=== PATIENT | female | born 1985 | race Caucasian/White ===

== ENCOUNTER 2018-09-26 06:00 | Day surgery (SDC) | payer BC ==
--- NOTE | 2018-09-20 22:04 | HP ---
CC: Dr. Muller * PREOPERATIVE HISTORY AND PHYSICAL: DATE OF ADMISSION/SURGERY: This patient is scheduled for same-day surgery admission by Dr. Chairez on 09/26/18. DATE OF PREOPERATIVE HISTORY AND PHYSICAL EXAMINATION: 09/20/18. ATTENDING SURGEON: Dr. Wil Chairez * (dictated by Essence Chen NP). CHIEF COMPLAINT: Biliary colic. HISTORY OF PRESENT ILLNESS: The patient is a 33-year-old female referred to Dr. Chairez by Dr. Muller for symptoms related to biliary colic and consideration for gallbladder surgery. In September 2017, she went to an emergency room on [address] with chest and abdominal pain; she had normal labs and a normal EKG, but an abdominal ultrasound revealed gallstones and she was told to seek surgical referral. Since then, she has had intermittent and mild epigastric and right upper quadrant abdominal pain, but she has been trying to follow a low-fat diet to keep it at bay. Gallbladder ultrasound did reveal gallstones; she had a HIDA scan, which showed a patent cystic and common bile duct. Dr. Chairez examined the patient and discussed the findings with her and has recommended laparoscopic cholecystectomy and described the nature of the surgical procedure, the relevant risks and benefits and today, I reviewed the expected postoperative care and recovery. Of note, she denies any change in the color of urine or stool; she had liver chemistries within normal limits and has never had an elevated white blood count. PAST MEDICAL HISTORY: Significant for morbid obesity; hypothyroidism; episodes of bulimia, none recent; chronic pharyngitis; anxiety and depression; migraine headaches. PAST SURGICAL HISTORY: None. OB HISTORY: 5, para 3, miscarriage 2. Last menstrual period approximately 2 weeks ago. MEDICATIONS: 1. Synthroid 88 mcg 1 tablet daily. 2. Magnesium oxide 250 mg daily. 3. Vitamin D3 2000 International Units 2 tablets daily. 4. Multivitamin daily. ALLERGIES: No known drug allergies. FAMILY HISTORY: Her parents are both adopted. She does not know significant family history. SOCIAL HISTORY: She is and has 3 young children; she has never been a smoker and denies the use of alcohol or other substances. REVIEW OF SYSTEMS: Constitutional: No fevers, chills, excessive fatigue. Endocrine: No diabetes; she is on thyroid replacement for hypothyroidism. Hematologic: No easy bruising or bleeding. No blood transfusions. She reports that her menstrual periods can be very heavy. Respiratory: No dyspnea on exertion. No chronic cough; she reports that she had a negative strep test at her primary care office 2 weeks ago when she had a sore throat. No current sore throat. Cardiovascular: No anginal chest pain or palpitations. Gastrointestinal: No nausea, vomiting, diarrhea, GI bleeding, or constipation. No change in the color of her stool. Genitourinary: No dysuria. No change in the color of her urine. Musculoskeletal: No complaints of back or joint pain. Neurologic: History of migraine headaches, none today. No blurred vision. General: She has never received local anesthesia or general anesthesia that she is aware of; she states that she did have what sounds like an epidural with the of her third child; she denies any history of bleeding tendencies and has never received a blood transfusion. She denies any history of deep vein thrombosis or pulmonary embolism. PHYSICAL EXAMINATION GENERAL SURVEY: The patient is a 33-year-old morbidly obese female, well developed, in no acute distress. VITAL SIGNS: Height 63 inches, weight 260 pounds, body mass index 46.1. Blood pressure 124/90, pulse 84 and regular, respiratory rate 18, temperature 97.4 tympanic. HEENT: Benign. NECK: Supple. No cervical lymphadenopathy. LUNGS: Breath sounds bilaterally clear and equal. HEART: Regular rate and rhythm. No murmurs or rubs appreciated. ABDOMEN: Obese. Active bowel sounds. Soft and nondistended, nontender throughout. No surgical scars. No obvious masses or organomegaly or evidence of ventral hernia. BACK: No CVA tenderness. PELVIC: Exam deferred. RECTAL: Exam deferred. EXTREMITIES: Warm without edema or skin ulceration. NEUROLOGIC: Alert and oriented x3. Steady gait. SKIN: Warm, dry, intact. IMPRESSION: Biliary colic, cholelithiasis. PLAN: Same-day surgery admission to Dr. Chairez' schedule on 09/26/18 , for laparoscopic cholecystectomy. MELLY CHEN NP [id number]/[facility] #: [id number] [facility]
[~2018-09-26 06:00] MED LIST: Buffered Lidocaine 0.9% SYRIN* 5 ML/SYR SYRINGE INTRADERM ONE; Dexamethasone IV* 4 MG/ML 1 ML (4 MG) IV SLOW PU ONE; Famotidine IV* 10 MG/ML 2 ML (20 mg) IV ONE
[2018-09-26] MEDS ORDERED: Naloxone* 0.4 MG/ML 1 ML VIAL IV PRN (06:55)
[2018-09-26] MEDS ORDERED: Iohexol 180 (CONTRAST) 10 ML SDV IV ONE (06:55)
[2018-09-26] MEDS ORDERED: DiMENhydriNATE IV* 50 MG/ML VIAL IV PUSH PRN (06:55)
[2018-09-26] MEDS ORDERED: Bupivacaine 0.25% EPI 200,000* 30 ML SDV ONE (06:55)
[2018-09-26] MEDS ORDERED: Scopolamine 1.5 mg* PATCH TRANSDERM SCH (07:00)
[2018-09-26] MEDS ORDERED: Scopolamine 1.5 mg* PATCH ONE (07:07)
[2018-09-26] MEDS ORDERED: ceFAZolin 2 GM PREMIX in ORs 2 GM/50 ML BAG IVPB ONE (07:07)
[2018-09-26] MEDS ORDERED: Dexamethasone IV* 4 MG/ML 1 ML (4 MG) ONE (07:07)
[2018-09-26] MEDS ORDERED: Famotidine IV* 10 MG/ML 2 ML (20 mg) ONE (07:07)
[2018-09-26] MEDS ORDERED: Rocuronium* 10 MG/ML VIAL ONE (07:09)
[2018-09-26] MEDS ORDERED: fentaNYL* 50 MCG/ML 2 ML VIAL (100 MCG VIAL) ONE ×5 (07:09→09:38)
[2018-09-26] MEDS ORDERED: Midazolam* 1 MG/ML 2 ML VIAL (2 MG) ONE (07:09)
[2018-09-26] MEDS ORDERED: Propofol* 10 MG/ML 20 ML BTL ONE (07:14)
[2018-09-26] MEDS ORDERED: Lidocaine 2% PF * 5 ML VIAL ONE (07:14)
[2018-09-26] MEDS ORDERED: Ketorolac INJ* 30 MG/ML 1 ML VIAL ONE (07:14)
[2018-09-26] MEDS ORDERED: Ondansetron INJ* 2 MG/ML VIAL ONE (07:14)
--- NOTE | 2018-09-26 08:49 | OP ---
Operative Report - Blank - Operative Report Date of Operation: 09/26/18 Note: Brief Operative Note Preop Dx: symptomatic cholelithiasis Postop Dx: same Procedure: laparoscopic cholecystectomy Anesthesia: GET Surgeon: Mihaela Simulation Tech: CODI Chance PA-S Fluids: 800 ml RL EBL: 20 ml Specimen: gallbladder Drains: none Findings: dictated
[2018-09-26] MEDS: fentaNYL* 50 MCG/ML 2 ML VIAL (100 MCG VIAL) IV PRN ×5 (08:59→09:55)
[2018-09-26] MEDS ORDERED: HYDROmorphone INJ1* 1 MG/ML SYRINGE ONE (09:07)
[2018-09-26] MEDS: HYDROmorphone INJ1* 1 MG/ML SYRINGE IV PRN ×2 (09:08→09:16)
[2018-09-26 10:39] VITALS: BP 139/89
--- NOTE | 2018-09-27 10:21 | OP ---
CC: Oumar Muller DO * DATE OF OPERATION: 09/26/18 - [facility] DATE OF : 83 SURGEON: Wil Chairez MD WIRE CHIEF: HUONG Hylton ANESTHESIOLOGIST: Steve Cantrell MD ANESTHESIA: General endotracheal. PRE-OP DIAGNOSIS: Symptomatic cholelithiasis. POST-OP DIAGNOSIS: Symptomatic cholelithiasis. OPERATIVE PROCEDURE: Laparoscopic cholecystectomy. ESTIMATED BLOOD LOSS: Minimal. IV FLUIDS: Crystalloids. SPECIMEN: Gallbladder. DRAINS: None. COMPLICATIONS: None. COUNTS: The instrument, needle, and sponge counts were correct. DESCRIPTION OF PROCEDURE: The patient was brought to the operating room and placed on the table supine. Sequential compression devices were placed on both lower extremities. She was positioned and padded appropriately. She received appropriate intravenous antibiotics. She was prepped and draped in the usual sterile fashion and time-out was performed. Local anesthetic was infiltrated into the skin and soft tissue prior to making each incision. Entry to the abdomen was through a transumbilical incision using an open technique, and after accessing the peritoneal cavity, a 5-mm trocar was placed and carbon dioxide was insufflated to a pressure of 15 mmHg. Under direct visualization, a 12-mm trocar was placed in the subxiphoid position and two 5-mm trocars were placed in the right upper quadrant. Gallbladder was identified. There was no acute inflammation. There were omental adhesions to the gallbladder fundus. The fundus was grasped and retracted cephalad. The adhesions to the omentum were taken down using a combination of sharp and blunt dissection. The infundibulum was identified and then the peritoneum investing the gallbladder was incised on both medial and lateral aspects. A large cystic node was identified, dissected free and beneath this, the cystic artery was identified. Subsequently, the cystic duct was able to be dissected out and critical view was obtained. The cystic artery and cystic duct were each divided after being doubly clipped. The gallbladder was freed from attachments to the liver using the electrocautery. There was a posterior branch of the cystic artery that was identified and was clipped as well. The gallbladder was freed, placed to endoscopic retrieval bag and retrieved through the subxiphoid port site. Subsequently, inspection revealed the clips to be intact. The hemostasis was excellent. The ports were removed under direct visualization and carbon dioxide was released. The wounds were closed with 4-0 Monocryl for the skin. Steri-Strips were applied. The patient tolerated the procedure well, was extubated, and transferred to the recovery room in stable condition. [id number]/[facility] #: [id number] CYN
== END 2018-09-26 10:43 | disposition home or self-care (01) ==
LOC: OR 06:00
PROVIDERS: ATTEND Surgery
DX: K80.10 Calculus of gallbladder with chronic cholecystitis without obstruction (principal); Z68.42 Body mass index [BMI] 45.0-49.9, adult; F41.8 Other specified anxiety disorders; E03.9 Hypothyroidism, unspecified
CPT/HCPCS: 81025; 88304; A9270-GY; J0690; J1100; J1170; J1885; J2250; J2405; J2704; J3010

== ENCOUNTER 2018-09-28 05:30 | Emergency (ER) | payer BC ==
--- OUTSIDE RECORDS SUMMARY | 2018-09-28 05:39 | XMS REPORT | Continuity of Care Document ---
:1985 External Reference #:[id number] Author Name Lori Herrera Care Team Providers Name Role Phone Oumar Muller DO Primary Care Physician Unavailable Payers Type Date Identification Numbers Payment Provider Subscriber Effective: Policy Number: [id number] [facility] Segundo Durand 2017 PayID: [id number] [address] [address] [place] [address] Effective: 2017 Policy Number: [id number] [facility] Gay Durand Expires: 2019 Group Number: [id number]% [id number] [facility] PayID: [id number] [address] Advance Directives Description No Information Available Problems Description No Information Family History Date Family Member(s) Problem(s) Comments General Diabetes Mother Diabetes Social History Type Date Description Comments Sex Unknown Marital Status Lives With Lives With Children Occupation Homemaker Occupation Student ETOH Use Denies alcohol use Tobacco Use Start: Unknown Patient has never smoked Recreational Drug Use Denies Drug Use Smoking Status Reviewed: 09/20/18 Patient has never smoked Exercise Type/Frequency Exercises regularly Allergies, Adverse Reactions, Alerts Description No Known Drug Allergies Medications Medication Date Status Form Strength Qnty SIG Indications Ordering Provider Synthroid 0 Active Tablets 88mcg one by [place], 000 mouth Oumar daily DO Driss (increased to 112mcg has not started yet) Magnesium Oxide 0 Active Tablets 250mg 1 by mouth Unknown 000 every day Vitamin D3 Super 0 Active Tablets 2000Unit 2 by mouth Unknown Strength 000 every day Multivitamin 0 Active Tablets 1 tab Unknown Adults 000 daily Immunizations Description No Information Available Vital Signs Date Vital Result Comment 09/20/2018 12:56pm Height 63 inches 5'3" Weight 260.00 lb Heart Rate 84 /min BP Systolic Sitting 124 mmHg BP Diastolic Sitting 90 mmHg Respiratory Rate 18 /min Body Temperature 97.4 F BMI (Body Mass Index) 46.1 kg/m2 07/13/2018 10:11am Height 63 inches 5'3" Weight 260.00 lb Heart Rate 72 /min BP Systolic 124 mmHg BP Diastolic 82 mmHg Respiratory Rate 16 /min Body Temperature 97.8 F BMI (Body Mass Index) 46.1 kg/m2 11/10/2017 9:52am Heart Rate 84 /min Respiratory Rate 16 /min Body Temperature 98.5 F 10/28/2017 10:31am Height 63 inches 5'3" Weight 240.00 lb Heart Rate 68 /min BP Systolic Sitting 108 mmHg BP Diastolic Sitting 64 mmHg Respiratory Rate 18 /min Pain Level 4 BMI (Body Mass Index) 42.5 kg/m2 Results Test Date Facility Test Result H/L Range Note CBC Auto Diff 09/15/2018 [facility] White Blood 8.1 10^3/uL N 3.5-10.[address] [place] [address] [phone] Red Blood Count 5.29 10^6/uL N 4.00-5.40 Hemoglobin 14.0 g/dL N 12.0-16.0 Hematocrit 43 % N 35-47 Mean Corpuscular Volume 81 fL N 80-97 Mean Corpuscular Hemoglobin 27 pg N 27-31 Mean Corpuscular HGB Conc 33 g/dL N 31-36 Red Cell Distribution Width 15 % N 10.5-15 Platelet Count 212 10^3/uL N 150-450 Mean Platelet Volume 9.5 fL N 7.4-10.4 Abs Neutrophils 4.0 10^3/uL N 1.5-7.7 Abs Lymphocytes 3.3 10^3/uL N 1.0-4.8 Abs Monocytes 0.5 10^3/uL N 0-0.8 Abs Eosinophils 0.2 10^3/uL N 0-0.6 Abs Basophils 0.1 10^3/uL N 0-0.2 Abs Nucleated RBC 0 10^3/uL Granulocyte % 49.7 % N 38-83 Lymphocyte % 41.0 % N 25-47 Monocyte % 6.3 % N 0-7 Eosinophil % 2.1 % N 0-6 Basophil % 0.9 % N 0-2 Nucleated Red Blood Cells % 0.1 Laboratory test 09/15/2018 [facility] Hemoglobin A1c 5.3 % N 4.0-5.[address] (Glyco HGB) [place] [address] [phone] Comp Metabolic 09/15/2018 [facility] Sodium 138 N 135-[address] mmol/[place] [address] [phone] Potassium 4.5 mmol/L N 3.5-5.0 Chloride 108 mmol/L N 101-111 Co2 Carbon Dioxide 27 mmol/L N 22-32 Anion Gap 3 mmol/L N 2-11 Glucose 111 mg/dL High 70-100 Blood Urea Nitrogen 11 mg/dL N 6-24 Creatinine 0.68 mg/dL N 0.51-0.95 BUN/Creatinine Ratio 16.2 N 8-20 Calcium 9.3 mg/dL N 8.6-10.3 Total Protein 6.1 g/dL Low 6.4-8.9 Albumin 3.9 g/dL N 3.2-5.2 Globulin 2.2 g/dL N 2-4 Albumin/Globulin Ratio 1.8 N 1-3 Total Bilirubin 0.40 mg/dL N 0.2-1.0 Alkaline Phosphatase 69 U/L N 34-104 Alt 10 U/L N 7-52 Ast 10 U/L Low 13-39 Egfr Non- 99.0 >60 Egfr 119.8 >60 2 Laboratory test 09/15/2018 [facility] TSH (Thyroid 5.85 High 0.34-5.60 [address] Stim Horm) mcIU/[place] [address] [phone] Vitamin B12 529 pg/mL N 180-914 4 Vitamin D Total 25(Oh) 18.8 ng/mL Low 20-50 5 CBC Auto Diff 07/13/2018 [facility] White Blood 7.8 10^3/uL N 3.5-10.[address] [place] [address] [phone] Red Blood Count 5.29 10^6/uL N 4.00-5.40 Hemoglobin 14.0 g/dL N 12.0-16.0 Hematocrit 43 % N 35-47 Mean Corpuscular Volume 81 fL N 80-97 Mean Corpuscular Hemoglobin 26 pg Low 27-31 Mean Corpuscular HGB Conc 33 g/dL N 31-36 Red Cell Distribution Width 15 % N 10.5-15 Platelet Count 223 10^3/uL N 150-450 Mean Platelet Volume 10.0 um3 N 7.4-10.4 Abs Neutrophils 3.7 10^3/uL N 1.5-7.7 Abs Lymphocytes 3.5 10^3/uL N 1.0-4.8 Abs Monocytes 0.5 10^3/uL N 0-0.8 Abs Eosinophils 0.1 10^3/uL N 0-0.6 Abs Basophils 0 10^3/uL N 0-0.2 Abs Nucleated RBC 0 10^3/uL Granulocyte % 46.9 % N 38-83 Lymphocyte % 44.2 % N 25-47 Monocyte % 6.8 % N 0-7 Eosinophil % 1.8 % N 0-6 Basophil % 0.3 % N 0-2 Nucleated Red Blood Cells % 0.2 Comp Metabolic Panel 07/13/2018 [facility] Sodium 140 mmol/L N 135-145 [address] [place] [address] [phone] Potassium 4.2 mmol/L N 3.5-5.0 Chloride 106 mmol/L N 101-111 Co2 Carbon Dioxide 28 mmol/L N 22-32 Anion Gap 6 mmol/L N 2-11 Glucose 95 mg/dL N 70-100 Blood Urea Nitrogen 10 mg/dL N 6-24 Creatinine 0.72 mg/dL N 0.51-0.95 BUN/Creatinine Ratio 13.9 N 8-20 Calcium 9.3 mg/dL N 8.6-10.3 Total Protein 6.2 g/dL Low 6.4-8.9 Albumin 3.9 g/dL N 3.2-5.2 Globulin 2.3 g/dL N 2-4 Albumin/Globulin Ratio 1.7 N 1-3 Total Bilirubin 0.40 mg/dL N 0.2-1.0 Alkaline Phosphatase 68 U/L N 34-104 Alt 11 U/L N 7-52 Ast 11 U/L Low 13-39 Egfr Non- 93.3 >60 Egfr 112.9 >60 6 Laboratory test 07/13/2018 [facility] C Reactive 2.32 mg/L N < 8.[address] [place] [address] [phone] 1 Therapeutic target for the treatment of diabetes mellitus patients is <7% HBA1C, and in selective patients <6.0%. Please refer to [place] [employer] Association diabetic care guidelines for further information. 2 Because ethnic data is not always readily available, this report includes an eGFR for both -Americans and non- Americans. The National Kidney Disease Education Program (NKDEP) does not endorse the use of the MDRD equation for patients that are not between the ages of 18 and 70, are , have extremes of body size, muscle mass, or nutritional status, or are non- or non-. According to the National Kidney Foundation, irrespective of diagnosis, the stage of the disease is based on the level of kidney function: Stage Description GFR(mL/min/1.73 m(2)) 1 Kidney damage with normal or decreased GFR 90 2 Kidney damage with mild decrease in GFR 60-89 3 Moderate decrease in GFR 30-59 4 Severe decrease in GFR 15-29 5 Kidney failure <15 (or dialysis) 3 Copy Result to: Wil CHAIREZ ([id number]) 4 Normal Range 180 to 914 Indeterminate Range 145 to 180 Deficient Range <145 5 Copy Result to: Wil CHAIREZ ([id number]) 6 Because ethnic data is not always readily available, this report includes an eGFR for both -Americans and non- Americans. The National Kidney Disease Education Program (NKDEP) does not endorse the use of the MDRD equation for patients that are not between the ages of 18 and 70, are , have extremes of body size, muscle mass, or nutritional status, or are non- or non-. According to the National Kidney Foundation, irrespective of diagnosis, the stage of the disease is based on the level of kidney function: Stage Description GFR(mL/min/1.73 m(2)) 1 Kidney damage with normal or decreased GFR 90 2 Kidney damage with mild decrease in GFR 60-89 3 Moderate decrease in GFR 30-59 4 Severe decrease in GFR 15-29 5 Kidney failure <15 (or dialysis) Procedures Description No Information Available Encounters Type Date Location Provider Dx Diagnosis Office Visit 07/13/2018 [facility] Chaire[facility] MD, R10.13 Epigastric pain 10:30a [facility] FACS K80.20 Calculus of gallbladder w/o cholecystitis w/o obstruction Office Visit 11/10/2017 [facility] Wil Chairez K80.20 Calculus of 10:00a [facility] gallbladder w/o Utilization Review Nurse cholecystitis w/o obstruction Office Visit 10/28/2017 [facility] Wil Chairez K80.20 Calculus of 10:15a [facility] gallbladder w/o Utilization Review Nurse [facility] [place] cholecystitis w/o obstruction Plan of Treatment Future Appointment(s):10/04/2018 1:00 pm - Essence June NP at [facility]09/26/2018 8:00 am - HUONG Elmore at [facility]09/26/2018 8:00 am - Wil Chairez MD FACS at [facility]09/20/2018 - Essence June [id number] Calculus of gallbladder without cholecystitis without obstruFollow up:postop 10/10Z01.818 Encounter for other preprocedural examination
[2018-09-28] MEDS ORDERED: Morphine VIAL* 4 MG/ML VIAL (1 ml vial) IV ONE (05:55)
[2018-09-28] MEDS ORDERED: Metoclopramide IV* 5 MG/ML 2 ML VIAL IV SLOW PU ONE (05:55)
[2018-09-28] MEDS ORDERED: NS 0.9% 1000 ML* 1,000 ML IV ONE (05:55)
--- NOTE | 2018-09-28 05:56 | ED ---
HPI Chest Pain - HPI Summary HPI Summary: This patient is a 33 year old F presenting to [facility] with a chief complaint of left-sided CP radiating to L arm that began at approximately 0400 today and resolved an hour later. The patient rates the pain 8/10 in severity. Symptoms aggravated by nothing. Symptoms alleviated by nothing. Patient reports L arm numbness. Patient states she had a cholecystectomy two days ago. - History of Current Complaint Chief Complaint: EDChestPainROMI Time Seen by Provider: 09/28/18 05:40 Hx Obtained From: Patient Hx Last Menstrual Period: OVER 2 YEARS AGO: HAD MISCARRIAGE AND THEN FULL TERM Onset/Duration: Started Hours Ago, Atraumatic, Still Present Time of Onset: 04:00 Timing: Constant Initial Severity: Severe Current Severity: Severe Pain Intensity: 8 Pain Scale Used: 0-10 Numeric Chest Pain Location: Left Lateral Chest Pain Radiates: Yes Chest Pain Radiates To:: Arm Aggravating Factor(s): Nothing Alleviating Factor(s): Nothing Associated Signs and Symptoms: Positive: Numbness - Additional Pertinent History Primary Care Physician: Hoang Echavarria - Allergy/Home Medications Allergies/Adverse Reactions: Allergies Allergy/AdvReac Type Severity Reaction Status Date / Time No Known Allergies Allergy Verified 09/28/18 05:44 Home Medications: Home Medications Cholecalciferol (Vitamin D3) [Vitamin D3] 1,000 unit PO DAILY 09/28/18 [History Confirmed 09/28/18] Tramadol HCl 50 mg PO Q6H PRN 09/28/18 [History Confirmed 09/28/18] PMH/Surg Hx/FS Hx/Imm Hx Previously Healthy: No Endocrine/Hematology History: Reports: Hx Thyroid Disease - HYPOTHYROID; Synthroid Denies: Hx Diabetes Cardiovascular History: Denies: Hx Hypertension, Hx Pacemaker/ICD Respiratory History: Denies: Hx Asthma, Hx Chronic Obstructive Pulmonary Disease (COPD) GI History: Denies: Hx Ulcer History: Denies: Hx Renal Disease Musculoskeletal History: Reports: Other Musculoskeletal History - LOWER BACK INJURY STATES HAS HAD ALL HER LIFE Sensory History: Reports: Hx Contacts or Glasses - GLASSES Denies: Hx Hearing Aid Opthamlomology History: Reports: Hx Contacts or Glasses - GLASSES Neurological History: Reports: Hx Migraine - CHRONIC-2-3 TIMES PER WEEK AT LEAST -TREATS WITH IBUPROFEN Psychiatric History: Reports: Hx Anxiety - HX OF- NO MEDICATION FOR, Hx Depression - HX OF- NO MEDICATION FOR, Other Psychiatric Issues/Disorders - bulimia Denies: Hx Panic Disorder - Surgical History Surgery Procedure, Year, and Place: SPINAL BLOCKS FOR DELIVERIES Hx Anesthesia Reactions: Yes - "EITHER DOESN'T WORK OR MAKES ME FEEL EXTREMELY SICK" Infectious Disease History: No Infectious Disease History: Denies: Hx Clostridium Difficile, Hx Hepatitis, Hx Human Immunodeficiency Virus (HIV), Hx of Known/Suspected MRSA, Hx Shingles, Hx Tuberculosis, Hx Known/ Suspected VRE, Hx Known/Suspected VRSA, History Other Infectious Disease, Traveled Outside the [place] in Last 30 Days - Family History Known Family History: Positive: Cardiac Disease Family History: Father: [place] in 40's - Social History Occupation: Unemployed Lives: With Family Alcohol Use: None Hx Substance Use: No Substance Use Type: Reports: None Hx Tobacco Use: No Smoking Status (MU): Never Smoked Tobacco Have You Smoked in the Last Year: No Review of Systems Positive: Chest Pain Positive: Numbness All Other Systems Reviewed And Are Negative: Yes Physical Exam - Summary Physical Exam Summary: VITAL SIGNS: Reviewed. GENERAL: Patient is a well-developed and morbidly obese female who is lying comfortable in the stretcher. Patient is not in any acute respiratory distress. Patient seems anxious, shaky HEAD AND FACE: No signs of trauma. No ecchymosis, hematomas or skull depressions. No sinus tenderness. EYES: PERRLA, EOMI x 2, No injected conjunctiva, no nystagmus. EARS: Hearing grossly intact. Ear canals and tympanic membranes are within normal limits. MOUTH: Oropharynx within normal limits. NECK: Supple, trachea is midline, no adenopathy, no JVD, no carotid bruit, no c- spine tenderness, neck with full ROM. CHEST: Symmetric, no tenderness at palpation LUNGS: Clear to auscultation bilaterally. No wheezing or crackles. CVS: Regular rate and rhythm, S1 and S2 present, no murmurs or gallops appreciated. ABDOMEN: Soft, non-tender. No signs of distention. No rebound no guarding, and no masses palpated. Bowel sounds are normal. Laparoscopic ports. Steri strips. No inflammatory signs. EXTREMITIES: FROM in all major joints, no edema, no cyanosis or clubbing. NEURO: Alert and oriented x 3. No acute neurological deficits. Speech is normal and follows commands. SKIN: Dry and warm Triage Information Reviewed: Yes Vital Signs On Initial Exam: Initial Vitals Temp Pulse Resp BP Pulse Ox 98.0 F 70 16 111/52 94 09/28/18 05:41 09/28/18 05:41 09/28/18 05:41 09/28/18 05:41 09/28/18 05:41 Vital Signs Reviewed: Yes Diagnostics - Vital Signs Vital Signs Temp Pulse Resp BP Pulse Ox 09/28/18 05:41 98.0 F 70 16 111/52 94 - Laboratory Result Diagrams: 09/28/18 06:07 Lab Statement: Any lab studies that have been ordered have been reviewed, and results considered in the medical decision making process. - Radiology Chest XR Radiology Interpretation Completed By: ED Physician Summary of Radiographic Findings: CXR reveals, per ED physician, no acute process. - EKG 0534 Cardiac Rate: NL EKG Rhythm: Sinus Rhythm - [address] Segment: Non-Specific EKG Comparison: No Significant Change Summary of EKG Findings: An EKG taken at 0534 reveals nml sinus rhythm at 60 BPM with nonspecific T wave changes. No change from EKG done on 01/29/16. Chest Pain Course/Dx - Course Course Of Treatment: This patient is a 33 year old F presenting to [facility] with a chief complaint of left-sided CP radiating to L arm that began at approximately 0400 today and resolved an hour later. Physical Exam Findings: Laparoscopic ports. Steri strips. No inflammatory signs. Morbidly obese. Tenderness over the left chest wall. Patient seems anxious, shaky. An EKG taken at 0534 reveals nml sinus rhythm at 60 BPM with nonspecific T wave changes. No change from EKG done on 01/29/16. CXR reveals, per ED physician, no acute process. Bloodwork obtained. In the ED course the patient was given Metoclopramide, morphine, and fluids. Patient will be signed out to Dr. Mcmillan upon shift change pending CTA chest. The patient is agreeable with this plan. - Diagnoses Provider Diagnoses: Chest pain Discharge - Sign-Out/Discharge Documenting (check all that apply): Sign-Out Patient Signing out patient TO: Shayan Mcmillan - Upon shift change pending CTA chest - Discharge Plan Condition: Stable Referrals: Oumar Muller, [Primary Care Provider] - - Attestation Statements Document Initiated by Scribe: Yes Documenting Scribe: Amanda Paez Provider For Whom Scribe is Documenting (Include Credential): Dr. Mirlande Wooten MD Scribe Attestation: I, Amanda Paez, scribed for Dr. Mirlande Wooten MD on 09/28/18 at 0633. Status of Scribe Document: Ready
[2018-09-28 06:19] LABS: ABS Basophils 0.1 10^3/ul (0-0.2); ABS Eosinophils 0.1 10^3/ul (0-0.6); ABS Lymphocytes 3.5 10^3/ul (1.0-4.8); ABS Monocytes 0.6 10^3/ul (0-0.8); ABS Neutrophils 6.2 10^3/ul (1.5-7.7); ABS Nucleated RBC 0 10^3/ul; Eosinophil % 0.9 %; Hematocrit 41 % (35-47); Hemoglobin 13.3 g/dl (12.0-16.0); Lymphocyte % 33.4 %; Mean Corpuscular HGB Conc 32 g/dl (31-36); Mean Corpuscular Hemoglobin 27 pg (27-31); Mean Corpuscular Volume 82 fL (80-97); Mean Platelet Volume 9.2 fL (7.4-10.4); Nucleated Red Blood Cells % 0; Platelet Count 173 10^3/ul (150-450); Red Blood Count 5.02 10^6/ul (4.00-5.40); Red Cell Distribution Width 15 % (10.5-15); White Blood Count 10.5 10^3/ul (3.5-10.8)
[2018-09-28 06:27] LABS: INR 0.87 (0.77-1.02)
[2018-09-28] MEDS ORDERED: diPHENhydraMINE PO* 50 MG ONE (06:31)
[2018-09-28] MEDS ORDERED: diPHENhydraMINE PO* 50 MG PO ONE (06:34)
[2018-09-28] MEDS ORDERED: LORazepam INJ* 2 MG/ML 1 ML VIAL ONE ×2 (06:35→06:55)
[2018-09-28] MEDS ORDERED: LORazepam INJ* 2 MG/ML 1 ML VIAL IV PUSH ONE ×2 (06:35→06:55)
[2018-09-28 06:36] LABS: EGFR Non-African American 88.5 (>60)
--- NOTE | 2018-09-28 07:53 | ED ---
Progress - Progress Note Progress Note: Patient signed out from Dr. Wooten to Dr. Mcmillan upon shift change at 07:00 pending labs, CTA and disposition. CTA chest/thorax impression: No evidence of pulmonary embolus is noted. There is cardiomegaly noted. No pericardial effusion is noted. Crowding of the vascular markings with small bilateral pleural effusions. Possibility of CHF should BE considered. ED physician has reviewed this imaging report. Dx: Chest pain The patient will be discharged. Course/Dx - Course Course Of Treatment: Ms. Durand was feeling much improved at the time of discharge. She continued to have some minor chest pain which I reassured her was not a dangerous process. A CTA showed no evidence for PE and labs including a delayed troponin were negative. I recommended close follow-up with her PCP at [facility]. - Diagnoses Provider Diagnoses: Chest pain Discharge - Sign-Out/Discharge Documenting (check all that apply): Patient Departure - DC Receiving patient FROM: Mirlande Wooten - Discharge Plan Condition: Stable Disposition: HOME Patient Education Materials: Chest Pain (ED) Referrals: Omuar Muller DO [Primary Care Provider] - (2-3 days) Additional Instructions: Follow up with your PCP in 2-3 days. Return to the ED if you experience any new or worsening symptoms. - Billing Disposition and Condition Condition: STABLE Disposition: Home - Attestation Statements Document Initiated by Jacklyn: Yes Documenting Scribe: Richmond Carter Provider For Whom Jacklyn is Documenting (Include Credential): Shayan Mcmillan MD Scribe Attestation: I, Richmond Carter, scribed for Shayan Mcmillan MD on 09/28/18 at 1143. Scribe Documentation Reviewed: Yes Provider Attestation: The documentation as recorded by the Richmond leblanc accurately reflects the service I personally performed and the decisions made by me, Shayan Mcmillan MD Status of Scribe Document: Viewed
[2018-09-28] MEDS ORDERED: Iohexol 350* (CONTRAST) 500 ML MDV IV ONE (08:02)
[2018-09-28 11:06] LABS: Urine Appearance Clear; Urine Blood Negative (Negative); Urine Color Yellow; Urine Ketones Negative (Negative); Urine Protein Negative (Negative); Urine Red Blood Cell Trace(0-2/hpf) (Absent); Urine Specific Gravity 1.035 (1.010-1.030); Urine Urobilinogen Negative (Negative); Urine White Blood Cell Trace(0-5/hpf) (Absent)
[2018-09-28 11:28] VITALS: BP 117/86
== END 2018-09-28 11:27 | disposition home or self-care (01) ==
LOC: ED 05:30
DX: R07.9 Chest pain, unspecified (principal); E03.9 Hypothyroidism, unspecified
CPT/HCPCS: 36415; 71045; 71275; 80053; 81003; 81015; 82150; 83735; 84484; 84702; 85025; 85379; 85610; 85730; 87086; 93005; 96361; 96374; 96375; 96376; 99282; A9270-GY; J2060; J2270; J2765; Q9967

== ENCOUNTER 2018-12-01 08:50 | Emergency (ER) | payer BC ==
[2018-12-01 09:20] LABS: Hematocrit 44 % (35-47); Hemoglobin 14.6 g/dl (12.0-16.0); Mean Corpuscular HGB Conc 33 g/dl (31-36); Mean Corpuscular Hemoglobin 27 pg (27-31); Mean Corpuscular Volume 83 fL (80-97); Red Blood Count 5.37 10^6/ul (4.00-5.40); Red Cell Distribution Width 15 % (10.5-15); White Blood Count 6.9 10^3/ul (3.5-10.8)
[2018-12-01 09:39] LABS: ALT 24 U/L (7-52); Albumin 3.6 g/dL (3.2-5.2); Albumin/Globulin Ratio 1.4 (1-3); Alkaline Phosphatase 75 U/L (34-104); BUN/Creatinine Ratio 12.7 (8-20); Blood Urea Nitrogen 9 mg/dL (6-24); CO2 Carbon Dioxide 23 mmol/L (22-32); Calcium 8.5 mg/dL (8.6-10.3); Chloride 108 mmol/L (101-111); EGFR Non-African American 94.2 (>60); Globulin 2.6 g/dL (2-4); Glucose 101 mg/dL (70-100); Sodium 137 mmol/L (135-145); Total Protein 6.2 g/dL (6.4-8.9)
[2018-12-01 09:44] LABS: HCG Pregnancy < 0.60 mIU/mL
[2018-12-01] MEDS ORDERED: LORazepam INJ* 2 MG/ML 1 ML VIAL IV PUSH ONE (09:47)
[2018-12-01] MEDS ORDERED: NS 0.9% 1000 ML** 1,000 ML IV ONE (09:47)
[2018-12-01] MEDS ORDERED: Lidocaine 2% VISCOUS* 15 ML UDC PO ONE (09:47)
[2018-12-01] MEDS ORDERED: Al Hydrox/Mg Hydrox/Simet LIQ* 30 ML UDC PO ONE (09:47)
[2018-12-01 09:59] LABS: Anion Gap 6 mmol/L (2-11)
--- NOTE | 2018-12-01 10:10 | ED ---
HPI Chest Pain - HPI Summary HPI Summary: A 33 y/o female brought in by [place] ambulance presents to [facility] with a chief complaint of chest pain radiating to her left arm since her cholecystectomy in [place] [address] Chairez. She says that a few days after her surgery she came back to the ED due to a similar pain that she is experiencing now. At triage she rated her pain as a 9/10 in severity. She says that everyone in her house is sick. She reports that she has diarrhea, nausea, vomiting, dizziness, lightheadedness and SOB. She denies fever, chills, erythema (eyes), sore throat , cough, abdominal pain, dysuria, hematuria, edema and rash. She describes her chest pain as like a muscle spasm or tightness. Per triage note, "Pt states that she also has been sick with the "flu", denies any testing for flu. Pt states that the chest pain comes and goes in waves, however, today its been the "worst." Pt states that the chest pain radiates to left shoulder and down the arm, denies any numbness or tingling." She denies EtOH use or smoking. The first day of her LNMP was 11/10/18. She reports trying to get . She notes that last time she was in the ED and given narcotic pain medication she felt "out of it" for four days. Vital signs in room: HR:93 bpm, O2 Sat 100, BP: 127/64. - History of Current Complaint Chief Complaint: EDChestPainROMI Time Seen by Provider: 12/01/18 08:58 Hx Obtained From: Patient, EMS Hx Last Menstrual Period: 11/10/18 Onset/Duration: Started Weeks Ago, Still Present Timing: Intermittent, Lasting Weeks Initial Severity: Severe Current Severity: Severe Pain Intensity: 9 Pain Scale Used: 0-10 Numeric Chest Pain Location: Diffuse Chest Pain Radiates: Yes Chest Pain Radiates To:: Shoulder - left, Arm - left Character: Tightness, Other: - muscle spasms Aggravating Factor(s): Nothing Alleviating Factor(s): Nothing Associated Signs and Symptoms: Positive: Dizziness, Shortness of Breath, Lightheadedness, Vomiting. Negative: Numbness, Tingling, Fever, Chills, Cough, Calf Pain/Swelling - Additional Pertinent History Primary Care Physician: Hoang Echavarria - Allergy/Home Medications Allergies/Adverse Reactions: Allergies Allergy/AdvReac Type Severity Reaction Status Date / Time No Known Allergies Allergy Verified 09/28/18 05:44 Home Medications: Home Medications Levothyroxine Sodium [Synthroid] 100 mcg PO DAILY 12/01/18 [History Confirmed ] Loratadine 10 mg PO DAILY PRN 12/01/18 [History Confirmed 12/01/18] PMH/Surg Hx/FS Hx/Imm Hx Endocrine/Hematology History: Reports: Hx Thyroid Disease - HYPOTHYROID; Synthroid Denies: Hx Diabetes Cardiovascular History: Denies: Hx Hypertension, Hx Pacemaker/ICD Respiratory History: Denies: Hx Asthma, Hx Chronic Obstructive Pulmonary Disease (COPD) GI History: Denies: Hx Ulcer History: Denies: Hx Renal Disease Musculoskeletal History: Reports: Other Musculoskeletal History - LOWER BACK INJURY STATES HAS HAD ALL HER LIFE Sensory History: Reports: Hx Contacts or Glasses - GLASSES Denies: Hx Hearing Aid Opthamlomology History: Reports: Hx Contacts or Glasses - GLASSES Neurological History: Reports: Hx Migraine - CHRONIC-2-3 TIMES PER WEEK AT LEAST -TREATS WITH IBUPROFEN Psychiatric History: Reports: Hx Anxiety - HX OF- NO MEDICATION FOR, Hx Depression - HX OF- NO MEDICATION FOR, Other Psychiatric Issues/Disorders - bulimia Denies: Hx Panic Disorder - Surgical History Surgery Procedure, Year, and Place: SPINAL BLOCKS FOR DELIVERIES Hx Anesthesia Reactions: Yes - "EITHER DOESN'T WORK OR MAKES ME FEEL EXTREMELY SICK" Infectious Disease History: No Infectious Disease History: Denies: Hx Clostridium Difficile, Hx Hepatitis, Hx Human Immunodeficiency Virus (HIV), Hx of Known/Suspected MRSA, Hx Shingles, Hx Tuberculosis, Hx Known/ Suspected VRE, Hx Known/Suspected VRSA, History Other Infectious Disease, Traveled Outside the [place] in Last 30 Days - Family History Known Family History: Positive: Cardiac Disease Family History: Father: [place] in 40's - Social History Alcohol Use: None Hx Substance Use: No Substance Use Type: Reports: None Hx Tobacco Use: No Smoking Status (MU): Never Smoked Tobacco Have You Smoked in the Last Year: No Review of Systems Negative: Fever, Chills Negative: Erythema Negative: Sore Throat Positive: Chest Pain Positive: Shortness Of Breath. Negative: Cough Positive: Vomiting, Diarrhea, Nausea. Negative: Abdominal Pain Negative: dysuria, hematuria Positive: Arthralgia - left shoulder, Myalgia - left arm. Negative: Edema Negative: Rash Neurological: Other - positive: dizziness, lightheadedness Negative: Paresthesia, Numbness All Other Systems Reviewed And Are Negative: Yes Physical Exam - Summary Physical Exam Summary: Constitutional: Well-developed, Well-nourished, Alert. (-) Distressed, tearful, distractible from pain. Reports significant sensitivities to narcotic pain medication Skin: Warm, Dry HENT: Normocephalic; Atraumatic Eyes: Conjunctiva normal Neck: Musculoskeletal ROM normal neck. (-) JVD, (-) Stridor, (-) Tracheal deviation Cardio: Rhythm regular, rate normal, Heart sounds normal; Intact distal pulses; The pedal pulses are 2+ and symmetric. Radial pulses are 2+ and symmetric. (-) Murmur Pulmonary/Chest wall: Effort normal. (-) Respiratory distress, (-) Wheezes, (-) Rales Abd: Soft, (+) mild epigastric tenderness, (-) Distension, (-) Guarding, (-) Rebound Musculoskeletal: (-) Edema Lymph: (-) Cervical adenopathy Neuro: Alert, Oriented x3 Psych: Mood and affect Normal Triage Information Reviewed: Yes Vital Signs On Initial Exam: Initial Vitals Temp Pulse Resp BP Pulse Ox 98.2 F 88 15 120/70 96 12/01/18 08:52 12/01/18 08:52 12/01/18 08:52 12/01/18 08:52 12/01/18 08:52 Vital Signs Reviewed: Yes Diagnostics - Vital Signs Vital Signs Temp Pulse Resp BP Pulse Ox 12/01/18 09:58 22 12/01/18 08:52 98.2 F 88 15 120/70 96 - Laboratory Lab Results: Lab Results 12/01/18 12/01/18 Range/Units 09:07 09:07 WBC 6.9 (3.5-10.8) 10^3/ul RBC 5.37 (4.00-5.40) 10^6/ul Hgb 14.6 (12.0-16.0) g/dl Hct 44 (35-47) % MCV 83 (80-97) fL MCH 27 (27-31) pg MCHC 33 (31-36) g/dl RDW 15 (10.5-15) % Plt Count Pending MPV Pending Sodium 137 (135-145) mmol/L Potassium TNP Chloride 108 (101-111) mmol/L Carbon Dioxide 23 (22-32) mmol/L Anion Gap 6 (2-11) mmol/L BUN 9 (6-24) mg/dL Creatinine 0.71 (0.51-0.95) mg/dL Est GFR ( Amer) 114.0 (>60) Est GFR (Non-Af Amer) 94.2 (>60) BUN/Creatinine Ratio 12.7 (8-20) Glucose 101 H (70-100) mg/dL Calcium 8.5 L (8.6-10.3) mg/dL Total Bilirubin 0.50 (0.2-1.0) mg/dL AST TNP ALT 24 (7-52) U/L Alkaline Phosphatase 75 (34-104) U/L Total Protein 6.2 L (6.4-8.9) g/dL Albumin 3.6 (3.2-5.2) g/dL Globulin 2.6 (2-4) g/dL Albumin/Globulin Ratio 1.4 (1-3) Beta HCG, Quant < 0.60 mIU/mL Result Diagrams: 12/01/18 09:07 12/01/18 10:02 Lab Statement: Any lab studies that have been ordered have been reviewed, and results considered in the medical decision making process. - Radiology CXR Radiology Interpretation Completed By: Radiologist Summary of Radiographic Findings: NO ACTIVE CARDIOPULMONARY DISEASE IS NOTED. ED physician has reviewed this imaging report. - EKG 09:13 Cardiac Rate: NL - 84 bpm EKG Rhythm: Sinus Rhythm Summary of EKG Findings: Normal sinus rhythm at 84 bpm, no STEMI. 12:23 Cardiac Rate: NL - 92 bpm EKG Rhythm: Sinus Rhythm Summary of EKG Findings: Normal sinus rhythm at 92 bpm, no STEMI. Re-Evaluation - Re-Evaluation First Eval Re-Evaluation Time: 14:10 Change: Improved Comment: says that she is stiff now. Says that medication made her feel better. Denies a Hx of kidney stones. Discussed results. Chest Pain Course/Dx - Course Course Of Treatment: A 33 y/o female brought in by [place] ambulance presents to [facility] with a chief complaint of chest pain radiating to her left arm since her cholecystectomy in [place] [address] Chairez. She says that a few days after her surgery she came back to the ED due to a similar pain that she is experiencing now. At triage she rated her pain as a 9/10 in severity. She says that everyone in her house is sick. She reports that she has diarrhea, nausea, vomiting, dizziness, lightheadedness and SOB. She denies fever, chills, erythema (eyes), sore throat, cough, abdominal pain, dysuria, hematuria, edema and rash. She describes her chest pain as like a muscle spasm or tightness. Per triage note, "Pt states that she also has been sick with the "flu", denies any testing for flu. Pt states that the chest pain comes and goes in waves, however , today its been the "worst." Pt states that the chest pain radiates to left shoulder and down the arm, denies any numbness or tingling." She denies EtOH use or smoking. The first day of her LNMP was 11/10/18. She reports trying to get . She notes that last time she was in the ED and given narcotic pain medication she felt "out of it" for four days. Vital signs in room: HR:93 bpm, O2 Sat 100, BP: 127/64. EKG at 09:13 showed Normal sinus rhythm at 84 bpm, no STEMI. EKG at 12:23 showed Normal sinus rhythm at 92 bpm, no STEMI. In the ED course the patient was given 30 ml Maalox Plus PO, 0.5mg Xanax PO, 15 ml Lidocaine PO, 1mg Ativan IV, 50mg Ultram PO and Bactrim PO. Lab results obtained. Beta HCG, Quant <0.69. Urine blood 1+, Ur Leukocyte Esterase 2+, Urine WBC 1+, Urine RBC 3+, Ur, Squamous Epith Cells present, Urine bacteria 1+ . Both troponins were 0.00. CXR impression: NO ACTIVE CARDIOPULMONARY DISEASE IS NOTED. This patient will be discharged with prescritpions for Bactrim, Ultram and Xanax and follow [facility] with [facility]. Return precautions given. She is agreeable with this plan. - Diagnoses Provider Diagnoses: Chest pain, unspecified, Anxiety, UTI (urinary tract infection) Discharge - Sign-Out/Discharge Documenting (check all that apply): Patient Departure - DC Patient Received Moderate/Deep Sedation with Procedure: No - Discharge Plan Condition: Stable Disposition: HOME Prescriptions: ALPRAZolam TAB* [Xanax TAB*] 0.25 mg PO Q8H PRN #9 tab MDD 3 PRN Reason: Anxiety Sulfamethox/Trimethoprim DS* [Bactrim DS 800/160 TAB*] 1 tab PO BID #10 tab traMADol TAB* [Ultram*] 25 mg PO Q8H PRN #10 tab MDD 3 PRN Reason: Pain - Moderate To Severe Patient Education Materials: Chest Pain (ED), Urinary Tract Infection in Women (ED) Referrals: Oumar Muller DO [Primary Care Provider] - (2-3 days) [facility] [Outside] (2-3 days) Additional Instructions: Return to the ED if you experience any new or worsening symptoms. - Billing Disposition and Condition Condition: STABLE Disposition: Home - Attestation Statements Document Initiated by Scribe: Yes Documenting Scribe: Richmond Carter Provider For Whom Scribe is Documenting (Include Credential): Cipriano Walton MD Scribe Attestation: IRichmond, scribed for Cipriano Walton MD on 12/04/18 at 0739. Scribe Documentation Reviewed: Yes Provider Attestation: The documentation as recorded by the Richmond leblanc accurately reflects the service I personally performed and the decisions made by me, Cipriano Walton MD Status of Scribe Document: Viewed
[2018-12-01 10:30] LABS: Potassium Redraw 3.9 mmol/L (3.5-5.0)
[2018-12-01 10:37] LABS: Mean Platelet Volume 8.7 fL (7.4-10.4); Platelet Count 164 10^3/ul (150-450)
[2018-12-01] MEDS ORDERED: ALPRAZolam TAB* 0.5 MG PO ONE (12:12)
[2018-12-01 12:38] LABS: Urine Appearance Cloudy; Urine Bacteria 1+ (Absent); Urine Bilirubin Negative (Negative); Urine Blood 1+ (Negative); Urine Color Yellow; Urine Glucose Negative (Negative); Urine Ketones Negative (Negative); Urine Nitrite Negative (Negative); Urine Protein Negative (Negative); Urine Red Blood Cell 3+(>10/hpf) (Absent); Urine Specific Gravity 1.009 (1.010-1.030); Urine Squamous Epithelial Cell Present (Absent); Urine Urobilinogen Negative (Negative); Urine White Blood Cell 1+(6-10/hpf) (Absent)
[2018-12-01 12:51] LABS: Barbiturates Urine Screen None Detected (None Detect); Benzodiazepine Urine Screen None Detected (None Detect); Urine Cannabinoids Screen None Detected (None Detect)
[2018-12-01] MEDS ORDERED: traMADol TAB* 50 MG PO ONE (14:02)
[2018-12-01] MEDS ORDERED: Sulfamethox/Trimethoprim DS 800/160* TAB PO ONE (14:03)
[2018-12-01 16:00] VITALS: BP 122/88
== END 2018-12-01 16:08 | disposition home or self-care (01) ==
LOC: ED 08:50
DX: R07.89 Other chest pain (principal); F41.9 Anxiety disorder, unspecified; N39.0 Urinary tract infection, site not specified; R42 Dizziness and giddiness; R06.02 Shortness of breath; R11.10 Vomiting, unspecified; E03.9 Hypothyroidism, unspecified; Z90.49 Acquired absence of other specified parts of digestive tract
CPT/HCPCS: 36415; 71045; 80053; 80307; 81003; 81015; 84484; 84702; 85027; 85379; 87086; 93005; 96361; 96374; 99284; A9270-GY; J2060

== ENCOUNTER 2019-02-16 22:02 | Emergency (ER) | payer BC ==
[2019-02-16 22:49] LABS: ABS Basophils 0.1 10^3/ul (0-0.2); ABS Eosinophils 0.2 10^3/ul (0-0.6); ABS Lymphocytes 4.8 10^3/ul (1.0-4.8); ABS Monocytes 0.8 10^3/ul (0-0.8); ABS Neutrophils 5.7 10^3/ul (1.5-7.7); ABS Nucleated RBC 0 10^3/ul; Eosinophil % 1.9 %; Hematocrit 45 % (33-41); Hemoglobin 14.9 g/dL (12.0-16.0); Lymphocyte % 41.6 %; Mean Corpuscular HGB Conc 33 g/dL (31-36); Mean Corpuscular Hemoglobin 28 pg (27-31); Mean Corpuscular Volume 85 fL (80-97); Mean Platelet Volume 8.7 fL (7.4-10.4); Nucleated Red Blood Cells % 0.1; Platelet Count 214 10^3/uL (150-450); Red Blood Count 5.29 10^6 /uL (3.70-4.87); Red Cell Distribution Width 16 % (10.5-15); White Blood Count 11.6 10^3/uL (3.5-10.8)
[2019-02-16 23:07] LABS: Albumin 4.2 g/dL (3.2-5.2); Albumin/Globulin Ratio 1.8 (1-3); BUN/Creatinine Ratio 16.4 (8-20); Calcium 9.1 mg/dL (8.6-10.3); EGFR African American 110.4 (>60); EGFR Non-African American 91.3 (>60); Globulin 2.4 g/dL (2-4); Total Bilirubin 0.4 mg/dL (0.2-1.0); Total Protein 6.6 g/dL (6.4-8.9)
--- NOTE | 2019-02-17 01:38 | ED ---
- HPI Summary HPI Summary: 33-year-old female LMP 5 weeks ago presents with right side abdominal pain today. She states her OB sent her in to rule out ectopic. She states she' s had a normal appetite. States she has been nauseous but is normally nauseous during . Denies any fevers. She has history of high fibromyaglia. Denies any vaginal bleeding. She states it feels different than her miscarriage pain she's had in the past. no urinary symptoms. - History of Current Complaint Chief Complaint: EDAbdPain Stated Complaint: ABD PAIN AND PER PT Time Seen by Provider: 02/17/19 01:17 Pain Intensity: 8 - Assessment Hx Now: No SAB: 4 IEA: 0 - Additional Pertinent History Primary Care Physician: Hoang Echavarria Maternal Blood Type and Rh: B Positive - Allergies/Home Medications Allergies/Adverse Reactions: Allergies Allergy/AdvReac Type Severity Reaction Status Date / Time No Known Allergies Allergy Verified 09/28/18 05:44 PMH/Surg Hx/FS Hx/Imm Hx Endocrine/Hematology History: Reports: Hx Thyroid Disease - HYPOTHYROID; Synthroid Denies: Hx Diabetes Cardiovascular History: Denies: Hx Hypertension, Hx Pacemaker/ICD Respiratory History: Denies: Hx Asthma, Hx Chronic Obstructive Pulmonary Disease (COPD) GI History: Denies: Hx Ulcer History: Denies: Hx Renal Disease Musculoskeletal History: Reports: Other Musculoskeletal History - LOWER BACK INJURY STATES HAS HAD ALL HER LIFE Sensory History: Reports: Hx Contacts or Glasses - GLASSES Denies: Hx Hearing Aid Opthamlomology History: Reports: Hx Contacts or Glasses - GLASSES Neurological History: Reports: Hx Migraine - CHRONIC-2-3 TIMES PER WEEK AT LEAST -TREATS WITH IBUPROFEN Psychiatric History: Reports: Hx Anxiety - HX OF- NO MEDICATION FOR, Hx Depression - HX OF- NO MEDICATION FOR, Other Psychiatric Issues/Disorders - bulimia Denies: Hx Panic Disorder - Surgical History Surgery Procedure, Year, and Place: SPINAL BLOCKS FOR DELIVERIES Hx Anesthesia Reactions: Yes - "EITHER DOESN'T WORK OR MAKES ME FEEL EXTREMELY SICK" Infectious Disease History: No Infectious Disease History: Denies: Hx Clostridium Difficile, Hx Hepatitis, Hx Human Immunodeficiency Virus (HIV), Hx of Known/Suspected MRSA, Hx Shingles, Hx Tuberculosis, Hx Known/ Suspected VRE, Hx Known/Suspected VRSA, History Other Infectious Disease, Traveled Outside the [place] in Last 30 Days - Family History Known Family History: Positive: Cardiac Disease Family History: Father: [place] in 40's - Social History Alcohol Use: None Hx Substance Use: No Substance Use Type: Reports: None Hx Tobacco Use: No Smoking Status (MU): Never Smoked Tobacco Have You Smoked in the Last Year: No Review of Systems Negative: Fever Negative: Chest Pain Negative: Shortness Of Breath Positive: Abdominal Pain, Nausea Negative: dysuria All Other Systems Reviewed And Are Negative: Yes Physical Exam - Physical Exam Triage Information Reviewed: Yes Vital Signs Reviewed: Yes Appearance: Positive: Well-Appearing Skin: Positive: Warm, Dry Head/Face: Positive: Normal Head/Face Inspection Eyes: Positive: Normal, Conjunctiva Clear ENT: Positive: Pharynx normal Respiratory/Lung Sounds: Positive: Clear to Auscultation, Breath Sounds Present Cardiovascular: Positive: Normal, RRR Abdomen Description: Positive: Other: - tenderness in right pelvic area Bowel Sounds: Positive: Present Musculoskeletal: Positive: Normal Neurological: Positive: Normal Psychiatric: Positive: Normal Diagnostics - Vital Signs Vital Signs Temp Pulse Resp BP Pulse Ox 02/16/19 22:12 99.8 F 88 20 148/90 98 - Laboratory Lab Results: Lab Results 02/16/19 02/16/19 02/16/19 Range/Units 22:43 22:43 22:43 WBC 11.6 H (3.5-10.8) 10^3/uL RBC 5.29 H (3.70-4.87) 10^6 /uL Hgb 14.9 (12.0-16.0) g/dL Hct 45 H (33-41) % MCV 85 (80-97) fL MCH 28 (27-31) pg MCHC 33 (31-36) g/dL RDW 16 H (10.5-15) % Plt Count 214 (150-450) 10^3/uL MPV 8.7 (7.4-10.4) fL Neut % (Auto) 48.8 % Lymph % (Auto) 41.6 % [place] % (Auto) 6.9 % Eos % (Auto) 1.9 % Baso % (Auto) 0.8 % Absolute Neuts (auto) 5.7 (1.5-7.7) 10^3/ul Absolute Lymphs (auto) 4.8 (1.0-4.8) 10^3/ul Absolute Monos (auto) 0.8 (0-0.8) 10^3/ul Absolute Eos (auto) 0.2 (0-0.6) 10^3/ul Absolute Basos (auto) 0.1 (0-0.2) 10^3/ul Absolute Nucleated RBC 0 10^3/ul Nucleated RBC % 0.1 Sodium 135 (135-145) mmol/L Potassium 4.0 (3.5-5.0) mmol/L Chloride 105 (101-111) mmol/L Carbon Dioxide 25 (22-32) mmol/L Anion Gap 5 (2-11) mmol/L BUN 12 (6-24) mg/dL Creatinine 0.73 (0.51-0.95) mg/dL Est GFR ( Amer) 110.4 (>60) Est GFR (Non-Af Amer) 91.3 (>60) BUN/Creatinine Ratio 16.4 (8-20) Glucose 91 (70-100) mg/dL Calcium 9.1 (8.6-10.3) mg/dL Total Bilirubin 0.40 (0.2-1.0) mg/dL AST 20 (13-39) U/L ALT 42 (7-52) U/L Alkaline Phosphatase 42 (34-104) U/L Total Protein 6.6 (6.4-8.9) g/dL Albumin 4.2 (3.2-5.2) g/dL Globulin 2.4 (2-4) g/dL Albumin/Globulin Ratio 1.8 (1-3) Beta HCG, Quant 6920.00 mIU/mL Blood Type B Positive Antibody Screen Negative Result Diagrams: 02/16/19 22:43 02/16/19 22:43 Lab Statement: Any lab studies that have been ordered have been reviewed, and results considered in the medical decision making process. - Ultrasound No standard instances Ultrasound Interpretation Completed By: Radiologist Summary of Ultrasound Findings: IMPRESSION: Early intrauterine with no pole visualized. Short-term followup. pelvic ultrasound is recommended to evaluate its viability. Course/Dx - Course Course Of Treatment: 33-year-old female LMP 5 weeks ago presents with right side abdominal pain today. She states her OB sent her in to rule out ectopic. She states she's had a normal appetite. States she has been nauseous but is normally nauseous during . Denies any fevers. She has history of high fibromyaglia. Denies any vaginal bleeding. She states it feels different than her miscarriage pain she's had in the past. On exam has right pelvic pain. Ultrasound shows intrauterine . White blood cell count fell at 11. Warned if develop fever and worsening pain we'll need to return for work up for appendicitis but does not have herr point pain at this point. told otherwise to follow with primary. Patient understands agrees with plan. - Differential Diagnosis/HQI/PQRI: Ectopic , Intrauterine , UTI - Diagnoses Provider Diagnoses: Abdominal pain during Discharge - Sign-Out/Discharge Documenting (check all that apply): Patient Departure Patient Received Moderate/Deep Sedation with Procedure: No - Discharge Plan Condition: Good Disposition: HOME Patient Education Materials: First Trimester (ED) Referrals: Oumar Muller DO [Primary Care Provider] - Additional Instructions: follow up with ob Take tyenlol as needed for pain Return to ED if develop any new or worsening symptoms - Billing Disposition and Condition Condition: GOOD Disposition: Home
[2019-02-17 02:05] VITALS: BP 137/93
== END 2019-02-17 02:04 | disposition home or self-care (01) ==
LOC: ED 22:02
DX: O26.91 Pregnancy related conditions, unspecified, first trimester (principal); O99.281 Endocrine, nutritional and metabolic diseases complicating pregnancy, first trimester; O99.341 Other mental disorders complicating pregnancy, first trimester; O09.521 Supervision of elderly multigravida, first trimester; R10.9 Unspecified abdominal pain; E03.9 Hypothyroidism, unspecified; F41.9 Anxiety disorder, unspecified; Z3A.01 Less than 8 weeks gestation of pregnancy; Z79.890 Hormone replacement therapy
CPT/HCPCS: 36415; 76817; 80053; 84702; 85025; 86850; 86900; 86901; 99282

== ENCOUNTER 2019-05-06 19:07 | Emergency (ER) | payer BC, MEDICAID ==
[2019-05-06 19:44] VITALS: BP 133/72
--- NOTE | 2019-05-06 19:44 | UC ---
Lower Extremity/Ankle HPI - HPI Summary HPI Summary: Patient dropped a larg cutting board on her left foot this morning, the 2nd and 3rd toes are blod filled and open area on the 3rd toe. she did go to the beach on [place] back 5 hour trip and both legs are swollen, worried about a blood clot. patient is - History of Current Complaint Stated Complaint: FOOT INJURY Time Seen by Provider: 05/06/19 19:13 Hx Obtained From: Patient Hx Last Menstrual Period: 11/10/18 ?: Yes Onset/Duration: Sudden Onset, Lasting Hours Severity Initially: Severe Severity Currently: Moderate Aggravating Factor(s): Standing, Ambulation Alleviating Factor(s): Nothing Able to Bear Weight: Yes - Allergies/Home Medications Allergies/Adverse Reactions: Allergies Allergy/AdvReac Type Severity Reaction Status Date / Time No Known Allergies Allergy Verified 05/06/19 19:45 Home Medications: Home Medications Acetaminophen TAB* [Tylenol TAB*] 500 mg PO Q6HR 05/06/19 [History Confirmed ] PMH/Surg Hx/FS Hx/Imm Hx Previously Healthy: Yes - Surgical History Surgical History: None Surgery Procedure, Year, and Place: SPINAL BLOCKS FOR DELIVERIES - Family History Known Family History: Positive: Cardiac Disease Family History: Father: [place] in 40's - Social History Alcohol Use: None Substance Use Type: None Smoking Status (MU): Never Smoked Tobacco Have You Smoked in the Last Year: No - Immunization History Most Recent Influenza Vaccination: 08/08/14 Most Recent Tetanus Shot: 12/03/14 Most Recent Pneumonia Vaccination: unknown Vaccination Up to Date: Yes Review of Systems All Other Systems Reviewed And Are Negative: Yes Constitutional: Positive: Negative Skin: Positive: Bruising Musculoskeletal: Positive: Arthralgia - toes, Edema - both legs Physical Exam Triage Information Reviewed: Yes Appearance: Well-Appearing, Pain Distress, Obese Vital Signs Reviewed: Yes Eye Exam: Normal ENT Exam: Normal Dental Exam: Normal Neck exam: Normal Respiratory Exam: Normal Respiratory: Positive: Chest non-tender, Lungs clear, Normal breath sounds Cardiovascular Exam: Normal Cardiovascular: Positive: RRR, No Murmur, Pulses Normal Abdominal Exam: Normal Abdomen Description: Positive: Nontender, No Organomegaly, Soft Bowel Sounds: Positive: Present Musculoskeletal: Positive: Strength Intact, ROM Limited @ - in the toes due to pain, Edema @ - bilateral lower extremities non pitting, Neurological Exam: Normal Psychological Exam: Normal Skin: Positive: Other - small open area on left 3rd toe, bruising over the top of the left foot. Lower Extremity Course/Dx - Course Course Of Treatment: hx obtained, exam performed ,meds reviewed, cautery of subungal hematoma performed. patient is conerned over the swelling of her legs after the injury with the cutting board and being . She is concerned with the possibility of a blood clot. The edema is equal bilaterally. advised she go home and eleveate the legs and rest. She did just travel 5 hours in the car with her legs in a dependant position. if the swelling or pain increased to follow up at that time. - Differential Dx/Diagnosis Differential Diagnosis/HQI/PQRI: Contusion, Fracture (Closed), Subungual Hematoma Provider Diagnosis: Subungual hematoma of toe of left foot, Bilateral lower extremity edema Discharge - Sign-Out/Discharge Documenting (check all that apply): Patient Departure All imaging exams completed and their final reports reviewed: No Studies - Discharge Plan Condition: Stable Disposition: HOME Patient Education Materials: Foot Contusion (ED) Referrals: Oumar Muller DO [Primary Care Provider] - Additional Instructions: 1. soak the foot is warm soapy water daily for the next few days 2. Go home and elevate your legs, if pain and swelling in the affected leg persists than follow up in the ED or with your provider tomorrow. - Billing Disposition and Condition Condition: STABLE Disposition: Home
== END 2019-05-06 20:22 | disposition home or self-care (01) ==
LOC: UCEAST 19:07
DX: O26.899 Other specified pregnancy related conditions, unspecified trimester (principal); S90.122A Contusion of left lesser toe(s) without damage to nail, initial encounter; W22.8XXA Striking against or struck by other objects, initial encounter; Y93.G3 Activity, cooking and baking; Y92.010 Kitchen of single-family (private) house as the place of occurrence of the external cause; Y99.8 Other external cause status; O12.00 Gestational edema, unspecified trimester; O99.210 Obesity complicating pregnancy, unspecified trimester; Z3A.00 Weeks of gestation of pregnancy not specified
CPT/HCPCS: 99211; G0463

== ENCOUNTER 2019-10-12 10:32 | Inpatient (IN) | payer BC, MEDICAID ==
[2019-10-12] MEDS ORDERED: Lactated Ringers 1000 ML Bag* 1,000 ML IV ONE ×2 (11:50→13:19)
[2019-10-12] MEDS ORDERED: Buffered Lidocaine 1% SYRIN* 1 ML/SYRINGE INTRADERM ONE (11:50)
[2019-10-12] MEDS ORDERED: Lactated Ringers 1000 ML Bag* 1,000 ML IV SCH ×3 (12:00→18:00)
[2019-10-12] MEDS ORDERED: OBEPIDURAL* 250 ML EPIDURAL ONE (12:17)
[2019-10-12 12:19] LABS: ABS Basophils 0.1 10^3/ul (0-0.2); ABS Eosinophils 0.1 10^3/ul (0-0.6); ABS Lymphocytes 2.8 10^3/ul (1.0-4.8); ABS Monocytes 0.7 10^3/ul (0-0.8); ABS Neutrophils 7.9 10^3/ul (1.5-7.7); Eosinophil % 0.7 %; Hematocrit 42 % (35-47); Hemoglobin 14.1 g/dL (12.0-16.0); Lymphocyte % 24.2 %; Mean Corpuscular HGB Conc 34 g/dL (31-36); Mean Corpuscular Hemoglobin 29 pg (27-31); Mean Corpuscular Volume 84 fL (80-97); Mean Platelet Volume 9.9 fL (7.4-10.4); Nucleated Red Blood Cells % 0.1; Platelet Count 175 10^3/uL (150-450); Red Blood Count 4.93 10^6 /uL (3.70-4.87); Red Cell Distribution Width 15 % (10-15); White Blood Count 11.5 10^3/uL (3.5-10.8)
[2019-10-12 12:53] LABS: Urine Benzodiazepine Screen None Detected (None Detect); Urine Opiates Screen None Detected (None Detect)
[2019-10-12] MEDS: Phenylephrine 40 MCG/ML SYRINGE IV PUSH PRN ×3 (13:07→13:39)
[2019-10-12] MEDS ORDERED: EPHEDrine (Pressors)* 50 MG/ML VIAL IV PUSH PRN ×2 (13:19)
[2019-10-12] MEDS ORDERED: Phenylephrine 40 MCG/ML SYRINGE IV PUSH PRN (13:19)
[2019-10-12] MEDS ORDERED: Famotidine TAB* 20 MG PO PRN (13:19)
[2019-10-12] MEDS ORDERED: Sodium Citrate/Citric Acid* 15 ML UDC PO PRN (13:19)
[2019-10-12] MEDS ORDERED: OBEPIDURAL* 250 ML EPIDURAL SCH (14:00)
--- NOTE | 2019-10-12 14:30 | HP ---
General Information - Reason for Visit Pt presents with regular ctx about every 7-8 min since 0830 this AM. Cx 3cm dilated yesterday in office and membranes swept. Woke this AM and had some bloody show. - General Information Maternal Age: 34 Grav: 8 Para: 3 SAB: 4 IEA: 0 Estimated Due Date: 10/15/19 Determined By: LMP Gestational Age in Weeks/Days: 39+4 Maternal Blood Type and Rh: B Positive - Results this Serology/RPR Result: Non-Reactive Rubella Result: Immune HBsAg Result: Negative HIV Result: Negative GBS Culture Result: Negative Past Medical History Delivery History: Hx Uncomplicated Vaginal Delivery Pertinent Past Medical History: See Records - hypothyroidism, migraine , fibromyalgia Pertinent Past Surgical History: See Records - cholecystectomy - Antepartal Records Antepartal Records: Reviewed, Complicated by: - AMA, morbid obesity, poss XXX from NIPT Review of Systems Constitutional: Uncomfortable CV Complaint: No Respiratory: Shortness of Breath: No Gastrointestinal: No Nausea/Vomiting Genitourinary: Bleeding, No Dysuria, No Leaking Fluid Musculoskeletal: Contractions Neurological: No Headache Movement: Normal Exam Allergies/Adverse Reactions: Allergies No Known Allergies Allergy (Verified 05/06/19 19:45) normal, afebrile Lab Values - Entire Visit: Laboratory Tests 10/12/19 10/12/19 10/12/19 11:30 12:00 12:00 WBC 11.5 H RBC 4.93 H Hgb 14.1 Hct 42 MCV 84 MCH 29 MCHC 34 RDW 15 Plt Count 175 MPV 9.9 Neut % (Auto) 68.8 Lymph % (Auto) 24.2 [place] % (Auto) 5.7 Eos % (Auto) 0.7 Baso % (Auto) 0.6 Absolute Neuts (auto) 7.9 H Absolute Lymphs (auto) 2.8 Absolute Monos (auto) 0.7 Absolute Eos (auto) 0.1 Absolute Basos (auto) 0.1 Absolute Nucleated RBC 0.0 Nucleated RBC % 0.1 Urine Opiates Screen None detected Ur Barbiturates Screen None detected Ur Phencyclidine Scrn None detected Ur Amphetamines Screen None detected U Benzodiazepines Scrn None detected Urine Cocaine Screen None detected U Cannabinoids Screen None detected Blood Type B Positive Antibody Screen Negative - Measurements Height: 5 ft 4 in Weight: 253 lb Weight in lbs: [phone] Body Mass Index (BMI): 43.4 Pre- Weight: 260 lb Weight Gained This : -7 lbs and 0 ozs - Exam Breast: Breast Exam Deferred CVA: No CVA Tenderness Heart: Normal Rhythm/Heart Sounds HEENT: No Significant Findings Lungs: Clear Bilaterally Rectal: Rectal Exam Deferred - Abdominal Exam Abdomen Exam: Non-Tender, Fundal Height Consistent with Dates - Ultrasound/Biophysical Profile Ultrasound Status: Not Done Targeted Exam Findings Cervical Exam: 4cm Effacement: 80% Station: -1 Presenting Part: Vertex Membrane Status: Intact Bleeding/Discharge: Bloody Show EFM Findings - External Monitor Findings Baseline Heart Rate: 140 External Monitor Findings: Accelerations Present, No Pattern of Variable or Late Decelerations, Variability Moderate Contractions: Irregular, Moderate Contraction Frequency: Q5-8 min Assessment/Plan - Assessment Pt at 39+4 wks getting into labor with cervical change since yesterday. Reassuring status. Pt desires epidural so we will order after IV started. Neonatology aware of possible XXX. - Obstetrical Risk Factors Obstetrical Risk Factors: Obesity - Plan Plan: Admit - Anticipate Vaginal Delivery - Date/Time of Admission Date of Admission: 10/12/19 Time of Admission: 11:00
[2019-10-12] MEDS ORDERED: Oxytocin in LR* 20 UNITS/1,000 ML BAG IVPB SCH (16:00)
[2019-10-12] MEDS ORDERED: Witch Hazel PAD* JAR TOPICAL PRN (17:59)
[2019-10-12] MEDS ORDERED: Dibucaine 1% 28.35 GM TUBE PR PRN (17:59)
--- NOTE | 2019-10-12 18:06 | PROCNOTE ---
[facility] OB: Delivery Note - Delivery A Date of : 10/12/19 Time of : 17:41 Sex: Female Weight at : 7 lb 5 oz Score 1 Minute: 9 Score 5 Minutes: 9 Gestational Age in Weeks and Days at Delivery: 39 Weeks and 4 Days Delivery Method: Spontaneous Vaginal Labor: Spontaneous Did Patient attempt ?: N/A, No Previous Amniotic Fluid: Meconium Estimated Blood Loss: 500 Anesthesia/Analgesia: CEI for Labor Delivered By: Liu Bowman - Nursery Level of Nursery: Regular/Bedside - Perineum Perineal Injury: 2nd Degree Perineal Repair: By Delivering Practioner - Events Delivery Events of Note: Pitocin During Labor, Shoulder Dystocia - very mild - Additional Delivery Notes Additional Delivery Notes: Pt admitted in early labor, cervix 4cm. She received an epidural and then had SROM with light mec. Ctx continued to be slow, so pitocin was added for augmentation. She then progressed well to C/C/0. She pushed for about 15 min, to deliver the head. There was a brief shoulder dystocia as the shoulders were turned sideways. With Samm, the shoulder delivered immediately. Infant placed on mother's abdomen. Cord clamped and cut. IV pitocin increased. Intact placenta delivered spontaneously. 1% lidocaine injected and a small 2nd degree perineal lac was repaired with 3-0 Vicryl Rapide.
[2019-10-12] MEDS ORDERED: Simethicone TAB* 80 MG TAB.CHEW PO SCH (21:00)
[2019-10-12] MEDS ORDERED: Lidocaine 1% INJ* 10 MG/ML 30 ML SDV ONE (21:07)
[2019-10-13] MEDS: Ibuprofen TAB* 600 MG PO SCH ×5 (00:33→19:41)
[2019-10-13] MEDS: Acetaminophen TAB* 325 MG PO PRN ×3 (04:54→18:39)
[2019-10-13 06:58] LABS: ABS Eosinophils 0.1 10^3/ul (0-0.6); ABS Lymphocytes 3.7 10^3/ul (1.0-4.8); ABS Monocytes 0.8 10^3/ul (0-0.8); ABS Neutrophils 7.3 10^3/ul (1.5-7.7); Eosinophil % 1.1 %; Hematocrit 32 % (35-47); Lymphocyte % 30.8 %; Mean Corpuscular HGB Conc 34 g/dL (31-36); Mean Corpuscular Hemoglobin 29 pg (27-31); Mean Corpuscular Volume 84 fL (80-97); Mean Platelet Volume 9.8 fL (7.4-10.4); Platelet Count 145 10^3/uL (150-450); Red Blood Count 3.82 10^6 /uL (3.70-4.87); Red Cell Distribution Width 15 % (10-15)
[2019-10-13] MEDS: Docusate CAP* 100 MG PO SCH ×2 (07:51→14:51)
[2019-10-13] MEDS: Levothyroxine TAB* 112 MCG TAB PO SCH (07:51)
[2019-10-13] MEDS ORDERED: Ferrous Gluconate TAB* 324 MG TAB PO SCH (09:00)
--- NOTE | 2019-10-13 12:49 | PN ---
Progress Note - Progress Note Date of Service: 10/13/19 Note: POST PROGRESS NOTE S: PPD#1 s/p . Doing well. Up and ambulating. Voiding spontaneously. . O: AVSS, Afebrile Gen: nad, aaox3 CV: RRR Pulm: CTABL Abd: obese, soft, nd, nttp, fundus difficult to palpate 2/2 body habitus Ext: warm, nttp Psych: euthymic A/P: 34 y/o s/p - AVSS, afebrile, hemodynamically stable - Hx of PPD - mood is good, affect appropriate - Tolerating regular diet - Voiding spontaneously - RH+/Rubella Immune - Continue routine post care Aashish Chacko DO OBJUAN
[2019-10-14] MEDS: Levothyroxine TAB* 112 MCG TAB PO SCH (06:58)
[2019-10-14 07:36] VITALS: BP 113/44
[2019-10-14] MEDS: Ibuprofen TAB* 600 MG PO SCH (13:23)
== END 2019-10-14 18:00 | disposition home or self-care (01) | DRG 560 ==
LOC: MCHOBOUT 10:32 → MCHOB 11:49
PROVIDERS: ADMIT Obstetrics & Gynecology; ATTEND Obstetrics & Gynecology
PROC: 10E0XZZ Delivery of Products of Conception, External Approach (ICD-10-PCS; principal; 2019-10-12)
PROC: 4A1HXCZ Monitoring of Products of Conception, Cardiac Rate, External Approach (ICD-10-PCS; 2019-10-12)
PROC: 0KQM0ZZ Repair Perineum Muscle, Open Approach (ICD-10-PCS; 2019-10-12)
DX: O99.214 Obesity complicating childbirth (principal); Z37.0 Single live birth; O99.284 Endocrine, nutritional and metabolic diseases complicating childbirth; E66.01 Morbid (severe) obesity due to excess calories; E03.9 Hypothyroidism, unspecified; O77.0 Labor and delivery complicated by meconium in amniotic fluid; O66.0 Obstructed labor due to shoulder dystocia; O70.1 Second degree perineal laceration during delivery; Z3A.39 39 weeks gestation of pregnancy; Z79.890 Hormone replacement therapy
CPT/HCPCS: 36415; 80307; 85025; 86850; 86900; 86901; A9270-GY